=== PATIENT | male | born 1985 | race Two or more races ===

== ENCOUNTER → 2020-02-18 | Outpatient (CLI) | payer OTHER | END | disposition home or self-care (01) | LOC: RAD 15:12 | DX: M99.01 Segmental and somatic dysfunction of cervical region (principal); M99.02 Segmental and somatic dysfunction of thoracic region; M99.03 Segmental and somatic dysfunction of lumbar region; M99.04 Segmental and somatic dysfunction of sacral region; M54.5 Low back pain ==

== ENCOUNTER 2020-02-28 14:01 | Outpatient (CLI) | payer OTHER | END 2020-02-28 14:10 | disposition home or self-care (01) | LOC: RAD 14:01 | DX: M99.04 Segmental and somatic dysfunction of sacral region (principal); M99.05 Segmental and somatic dysfunction of pelvic region ==

== ENCOUNTER 2021-04-01 11:59 | Emergency (ER) | payer OTHER ==
[~2021-04-01] VITALS: Ht 160 cm; Wt 65.8 kg
[2021-04-01] MEDS ORDERED: ZITHROMAX500 MG PO (16:13)
== END 2021-04-01 16:25 | disposition home or self-care (01) ==
LOC: ER 11:59
DX: J06.9 Acute upper respiratory infection, unspecified (principal)